=== PATIENT | female | born 1960 | race Asian ===

== ENCOUNTER 2016-12-29 07:22 | Day surgery (SDC) | payer OTHER ==
[~2016-12-29] VITALS: Ht 157.5 cm; Wt 39.9 kg
[2016-12-29 07:59] VITALS: BP 122/80
[2016-12-29 10:54] VITALS: BP 135/89
== END 2016-12-29 10:45 | disposition home or self-care (01) ==
LOC: GI 07:22
PROVIDERS: Internal Medicine Gastroenterology
PROC: 0DB68ZX Excision of Stomach, Via Natural or Artificial Opening Endoscopic, Diagnostic (ICD-10-PCS; 2016-12-29)
PROC: 0DH63UZ Insertion of Feeding Device into Stomach, Percutaneous Approach (ICD-10-PCS; principal; 2016-12-29 08:30)
DX: R13.10 Dysphagia, unspecified (principal); G20 Parkinson's disease; K29.70 Gastritis, unspecified, without bleeding; B96.81 Helicobacter pylori [H. pylori] as the cause of diseases classified elsewhere
CPT/HCPCS: 43235; J0690; J1200; J1610; J2250; J2310; J3010; J3490

== ENCOUNTER 2018-01-26 06:21 | Day surgery (SDC) | payer OTHER ==
[~2018-01-26] VITALS: Ht 154.9 cm; Wt 44.5 kg
[2018-01-26 06:49] VITALS: BP 138/91
[2018-01-26 10:58] VITALS: BP 109/77
== END 2018-01-26 10:45 | disposition home or self-care (01) ==
LOC: GI 06:21 → OR 07:30 → GI 07:30
PROVIDERS: Internal Medicine Gastroenterology
PROC: 0D20XUZ Change Feeding Device in Upper Intestinal Tract, External Approach (ICD-10-PCS; principal; 2018-01-26 07:30)
DX: K94.23 Gastrostomy malfunction (principal); R13.10 Dysphagia, unspecified; G20 Parkinson's disease; Y83.3 Surgical operation with formation of external stoma as the cause of abnormal reaction of the patient, or of later complication, without mention of misadventure at the time of the procedure; Y73.2 Prosthetic and other implants, materials and accessory gastroenterology and urology devices associated with adverse incidents; Y92.009 Unspecified place in unspecified non-institutional (private) residence as the place of occurrence of the external cause
CPT/HCPCS: 43760; J1200; J1610; J2250; J2310; J3010; J3490; Q9967

== ENCOUNTER → 2018-07-23 | Day surgery (SDC) | payer OTHER ==
[~2018-07-23] VITALS: Ht 154.9 cm; Wt 44.5 kg
[2018-07-23 07:43] VITALS: BP 138/92
== END | disposition home or self-care (01) ==
LOC: GI → OR 08:30 → GI 08:30
DX: Z43.1 Encounter for attention to gastrostomy (principal); G20 Parkinson's disease; R13.10 Dysphagia, unspecified; R62.51 Failure to thrive (child); Z93.1 Gastrostomy status; Z68.1 Body mass index [BMI] 19.9 or less, adult; Z99.3 Dependence on wheelchair
CPT/HCPCS: 43760

== ENCOUNTER 2018-09-08 21:11 | Emergency (ER) | payer OTHER ==
[~2018-09-08] VITALS: Ht 160 cm; Wt 47.6 kg
[2018-09-08 21:44] VITALS: BP 112/64; Ht 160 cm; Wt 47.6 kg
== END 2018-09-09 00:29 | disposition home or self-care (01) ==
LOC: ED 21:11
DX: Z43.1 Encounter for attention to gastrostomy (principal)
CPT/HCPCS: Q0092

== ENCOUNTER 2019-11-15 10:50 | Emergency (ER) | payer OTHER ==
[~2019-11-15] VITALS: Ht 157.5 cm; Wt 54.4 kg
[2019-11-15 11:15] VITALS: Ht 157.5 cm; Wt 54.4 kg
[2019-11-15 13:59] VITALS: BP 122/71
== END 2019-11-15 13:59 | disposition home or self-care (01) ==
LOC: ED 10:50
DX: K94.20 Gastrostomy complication, unspecified (principal)
CPT/HCPCS: Q0092; Q9967

== ENCOUNTER 2020-01-15 13:48 | Inpatient (IN) | payer OTHER, SELFPAY ==
[~2020-01-15] VITALS: Ht 152.4 cm; Wt 54.0 kg
[2020-01-15 13:52] VITALS: Ht 152.4 cm; Wt 54.0 kg
[2020-01-15 14:27] LABS: microscopic required? NO
[2020-01-15] MEDS ORDERED: LODOSYN25 MG PO (14:32)
[2020-01-15 14:39] LABS: urine erythrocyte NEGATIVE (NEGATIVE)
[2020-01-15 14:41] LABS: BASOPHIL % 0.2 % (0-2); PLATELET COUNT 177 x10^3mcL (130-400); RED CELL DISTRIBUTION WIDTH 12.7 % (11.5-14.5)
[2020-01-15 16:04] LABS: CALCIUM 7.4 mg/dL (8.5-10.1); CARBON DIOXIDE 26.5 mmol/L (21-32); CHLORIDE SERUM 101 mmol/L (98-107); CREATININE SERUM 1.2 mg/dL (0.6-1.0); GFR1 49 mL/min; GLUCOSE SERUM 186 mg/dL (74-106); POTASSIUM SERUM 3.7 mmol/L (3.5-5.1); SODIUM SERUM 135 mmol/L (136-145)
[2020-01-15 16:08] LABS: ALBUMIN 2.8 g/dL (3.4-5.0); ALKALINE PHOSPHATASE 69 U/L (46-116); ALT/SGPT 20 U/L (14-59); AST/SGOT 25 U/L (15-37); BILIRUBIN TOTAL 0.2 mg/dL (0.20-1.00); C REACTIVE PROTEIN 1.8 mg/dL (<=0.9); LACTIC DEHYDROGENASE (LDH) 177 U/L (100-190); TOTAL PROTEIN, SERUM 6.5 g/dL (6.4-8.2)
[2020-01-15 21:03] VITALS: BP 99/64
[2020-01-15 23:20] VITALS: BP 88/61
[2020-01-16] VITALS (15 sets, daily range): BP systolic 88–151; BP diastolic 61–93
[2020-01-16 05:41] LABS: PLATELET COUNT 196 x10^3mcL (130-400); RED CELL DISTRIBUTION WIDTH 11.9 % (11.5-14.5)
[2020-01-16 05:49] LABS: CALCIUM 8.4 mg/dL (8.5-10.1); CARBON DIOXIDE 30.9 mmol/L (21-32); CHLORIDE SERUM 108 mmol/L (98-107); GFR1 > 60 mL/min; GLUCOSE SERUM 179 mg/dL (74-106); POTASSIUM SERUM 4.3 mmol/L (3.5-5.1); SODIUM SERUM 141 mmol/L (136-145)
[2020-01-17 05:01] VITALS: BP 142/101
[2020-01-17 07:25] LABS: BASOPHIL % 0.3 % (0-2); PLATELET COUNT 187 x10^3mcL (130-400); RED CELL DISTRIBUTION WIDTH 12.6 % (11.5-14.5)
[2020-01-17 07:36] LABS: CALCIUM 8.2 mg/dL (8.5-10.1); CARBON DIOXIDE 32.4 mmol/L (21-32); CHLORIDE SERUM 107 mmol/L (98-107); CREATININE SERUM 0.6 mg/dL (0.6-1.0); GFR1 > 60 mL/min; GLUCOSE SERUM 93 mg/dL (74-106); POTASSIUM SERUM 3.1 mmol/L (3.5-5.1); SODIUM SERUM 143 mmol/L (136-145)
[2020-01-17 08:14] VITALS: BP 142/96
[2020-01-17 13:05] VITALS: BP 138/89
[2020-01-17] MEDS ORDERED: CARBIDOPA AND L1 TER PO (13:35)
[2020-01-17 17:26] VITALS: BP 139/97
[2020-01-17 19:51] VITALS: BP 117/73; BP 95/57
[2020-01-17 23:49] VITALS: BP 118/75
[2020-01-18 05:00] VITALS: BP 145/85
[2020-01-18 07:15] LABS: BASOPHIL % 0.3 % (0-2); PLATELET COUNT 179 x10^3mcL (130-400); RED CELL DISTRIBUTION WIDTH 12.6 % (11.5-14.5)
[2020-01-18 07:33] LABS: CALCIUM 8.1 mg/dL (8.5-10.1); CARBON DIOXIDE 29.6 mmol/L (21-32); CHLORIDE SERUM 103 mmol/L (98-107); CREATININE SERUM 0.8 mg/dL (0.6-1.0); GFR1 > 60 mL/min; GLUCOSE SERUM 106 mg/dL (74-106); POTASSIUM SERUM 3.2 mmol/L (3.5-5.1); SODIUM SERUM 140 mmol/L (136-145)
[2020-01-18 08:14] VITALS: BP 129/83
[2020-01-18 12:54] VITALS: BP 119/74
[2020-01-18 16:36] VITALS: BP 148/96
[2020-01-18 21:32] VITALS: BP 152/83
[2020-01-19 06:35] VITALS: BP 133/85
[2020-01-19 06:57] LABS: BASOPHIL % 0.2 % (0-2); PLATELET COUNT 172 x10^3mcL (130-400); RED CELL DISTRIBUTION WIDTH 12.3 % (11.5-14.5)
[2020-01-19 07:10] LABS: CALCIUM 8.2 mg/dL (8.5-10.1); CARBON DIOXIDE 33.2 mmol/L (21-32); CHLORIDE SERUM 102 mmol/L (98-107); CREATININE SERUM 0.7 mg/dL (0.6-1.0); GFR1 > 60 mL/min; GLUCOSE SERUM 127 mg/dL (74-106); POTASSIUM SERUM 3.5 mmol/L (3.5-5.1); SODIUM SERUM 138 mmol/L (136-145)
[2020-01-19 09:33] VITALS: BP 118/80
[2020-01-19 12:29] VITALS: BP 132/90
[2020-01-19 16:08] VITALS: BP 162/102
[2020-01-19 16:22] VITALS: BP 132/76
[2020-01-19 20:55] VITALS: BP 139/96
[2020-01-20 05:50] VITALS: BP 141/89
[2020-01-20 07:24] LABS: CARBON DIOXIDE 26.2 mmol/L (21-32); CHLORIDE SERUM 102 mmol/L (98-107); CREATININE SERUM 0.6 mg/dL (0.6-1.0); GFR1 > 60 mL/min; GLUCOSE SERUM 136 mg/dL (74-106); POTASSIUM SERUM 3.7 mmol/L (3.5-5.1); SODIUM SERUM 135 mmol/L (136-145)
[2020-01-20 08:28] VITALS: BP 130/86
[2020-01-20 08:59] LABS: BASOPHIL % 0.3 % (0-2); PLATELET COUNT 185 x10^3mcL (130-400); RED CELL DISTRIBUTION WIDTH 12.7 % (11.5-14.5)
[2020-01-20 10:13] VITALS: BP 130/86
[2020-01-20 12:09] VITALS: BP 127/92
== END 2020-01-20 12:35 | disposition home or self-care (01) | DRG 720 ==
LOC: ED 13:48 → DU 17:24 → IC 18:48 → DU 19:05 → IC 20:10 → DU 20:38 → IC 20:44 → DU 01-16 21:41
PROVIDERS: Emergency Medicine; ADMIT Internal Medicine; ATTEND Internal Medicine
DX: A41.9 Sepsis, unspecified organism (principal); U07.1 COVID-19; J96.01 Acute respiratory failure with hypoxia; J69.0 Pneumonitis due to inhalation of food and vomit; G93.41 Metabolic encephalopathy; E44.0 Moderate protein-calorie malnutrition; R13.10 Dysphagia, unspecified; E87.1 Hypo-osmolality and hyponatremia; N17.9 Acute kidney failure, unspecified; G20 Parkinson's disease; E16.2 Hypoglycemia, unspecified; J45.909 Unspecified asthma, uncomplicated; J12.89 Other viral pneumonia; F02.80 Dementia in other diseases classified elsewhere, unspecified severity, without behavioral disturbance, psychotic disturbance, mood disturbance, and anxiety; E86.0 Dehydration; Z93.1 Gastrostomy status; Z68.1 Body mass index [BMI] 19.9 or less, adult; Z79.899 Other long term (current) drug therapy
CPT/HCPCS: 36600; 83880; 87804; G0378; J0456; J0696; J1100; J3535; J7042; J7050; J7060; Q0092; U0003-CS

== ENCOUNTER 2020-01-23 15:45 | Inpatient (IN) | payer OTHER, SELFPAY ==
[~2020-01-23] VITALS: Ht 160 cm; Wt 49.9 kg
[~2020-01-23 15:45] MED LIST: CARBIDOPA AND L1 TER PO; LODOSYN25 MG PO
[2020-01-23 15:46] VITALS: Ht 160 cm; Wt 49.9 kg
--- NOTE | 2020-01-23 16:15 | NUR ---
PT BIB DAUGHTER S/P COVID SYMPTOMS X8DAYS. PT AAOX0 AND NONVERBAL. DTR AT BEDSIDE. PER DTR, "MY MOM WAS DISCHARGED HERE ON THURSDAY FOR COVID. SHE WAS IN THE ICU AND TELE HERE. SHE LIVES WITH MY BROTHERS AND THEY TOLD ME SHE HASN'T BEEN WELL SINCE SHE GOT HOME. SHE HAS BEEN BREATHING FAST AND HAD A FEVER. HER BLOOD PRESSURE WAS ALSO LOW TODAY." DTR STS PT HAS HX OF PARKINSONS. PT PRESENTS TO THE ER AAOX0, RAPID AND SHALLOW RESPIRATIONS, WITH A G/T AND A DIAPER. PT SAT ON RA 94-95% AND PRESENTS WITH A FEVER. PER DTR, TYLENOL WAS GIVEN FOR THE FEVER AT 1430. AWAITING MD ORDERS
--- NOTE | 2020-01-23 16:30 | NUR ---
PT OPENING EYES, DISPLAYING GROANING NOISES. PT UNABLE TO FOLLOW COMMANDS. DTR AT BEDSIDE. CONTINUING TO MONITOR.
--- NOTE | 2020-01-23 16:37 | NUR ---
RT AT BEDSIDE FOR ABG
--- NOTE | 2020-01-23 16:40 | NUR ---
RT RECOMMEND PT TO BE MOVED TO A NEGATIVE PRESSURE ROOM DUE TO PT UNABLE TO FOLLOW DIRECTIONS OF ALBUTEROL TX. WILL INFORM MD AND LACE STRIPPER.
--- NOTE | 2020-01-23 16:45 | NUR ---
PT MOVED TO BED T1 FROM BED 11 VIA [facility].
[2020-01-23 16:57] LABS: CALCIUM 7.9 mg/dL (8.5-10.1); CARBON DIOXIDE 29.3 mmol/L (21-32); CHLORIDE SERUM 101 mmol/L (98-107); CREATININE SERUM 0.9 mg/dL (0.6-1.0); GFR1 > 60 mL/min; GLUCOSE SERUM 155 mg/dL (74-106); PLATELET COUNT 245 x10^3mcL (130-400); POTASSIUM SERUM 4.1 mmol/L (3.5-5.1); RED CELL DISTRIBUTION WIDTH 12.6 % (11.5-14.5); SODIUM SERUM 135 mmol/L (136-145)
[2020-01-23 16:58] LABS: BASOPHIL % 0 % (0-2)
[2020-01-23 17:02] LABS: ALKALINE PHOSPHATASE 174 U/L (46-116); ALT/SGPT 75 U/L (14-59); AST/SGOT 84 U/L (15-37); BILIRUBIN TOTAL 0.18 mg/dL (0.20-1.00); LACTIC DEHYDROGENASE (LDH) 317 U/L (100-190); TOTAL PROTEIN, SERUM 6.7 g/dL (6.4-8.2)
[2020-01-23 17:03] LABS: ALBUMIN 2.4 g/dL (3.4-5.0)
[2020-01-23 17:27] LABS: microscopic required? YES; urine erythrocyte TRACE (NEGATIVE)
--- NOTE | 2020-01-23 17:33 | NUR ---
MAGALY, ANA: [phone] [facility], 1928–1983: [phone]
[2020-01-23 18:00] VITALS: BP 130/79
--- NOTE | 2020-01-23 18:10 | NUR ---
REPORTED GIVEN TO STACEY JAIN
--- NOTE | 2020-01-23 18:25 | NUR ---
RECEIVED PT VIA [employer] FROM E/D, ACCOMPANIED BY RN AND TRANSPORTER. PT AWAKE, CONFUSED, DISORIENTED, TRACKS W/ EYES, APHASIC, UNABLE TO FOLLOW SIMPLE COMMANDS (@ BASELINE, PT ABLE TO FOLLOW COMMANDS); INTERVIEWED DAUGHTER INSTEAD, JUSTIN BLANTON, VIA TELEPHONE CALL @ [phone]. ON TELE # 3, ST, HR 100, NO S/S CHEST PAIN OR DISCOMFORT. MICHAEL LUNGS DIM, CHEST RISING EVENLY, 2LNC, 97%, EPISODES OF SOB. ABD SOFT, ROUND, NON-TENDER, NORMOACTIVE BOWEL SOUNDS X 4 QUADS, LAST BM 01/23/2020, PASTY; PT W/ GT 20FR/5CC BALLOON, UNKNOWN INSTALLATION DATE, GT SITE CDI; PER DAUGHTER, PT ON "PUREED" DIET @ HOME VIA GT + ENSURE. ON F/C 16FR, INSTALLED 01/23/2020, DRAINING CLEAR YELLOW URINE; UA +MANY BUDDING YEAST. PT W/ GENERALIZED WEAKNESS, USES W/C @ HOME, BEDBOUND @ THIS TIME, RECENT FALL, FALL RISK PROTOCOL IN PLACE. IV SITE RH 22G, CDI. UNABLE TO ORIENT PT TO ANYTHING @ THIS TIME. SIDE RAILS UP X 2, BED IN LOW POSITION, CALL LIGHT WITHIN REACH. WILL ENDORSE TO SUSY IBARRA.
--- NOTE | 2020-01-23 18:35 | NUR ---
Pt FROM ER LYING IN BED NON VERBAL ON TELE 3 MRSA SWABBED AND SENT TO LAB. IV ON RIGHT HAND PATENT AND INTACT. BEDFAST Pt ASSISTED WITH REPOSITION. A&O. ON 2L NC LUNGS DIMINSHED BILAT EXPIRATORY WHEEZES RR 22. CHEST RISE EQUAL. HENSON DRAINING TO GRAVITY. PEG TUBE IN PLACE C/D/I NPO AT THIS TIME. ALL SAFETY PRECAUTIONS IN PLACE. ALL NEEDS ATTENDED TO. WILL CONTINUE TO MONITOR.
[2020-01-23 19:04] VITALS: BP 151/80
--- NOTE | 2020-01-23 19:07 | NUR ---
Pt LYING IN BED DECADRON GIVEN Pt TOLERATED WELL. NO S/S OF ANY ACUTE DISTRESS. ALL NEEDS ATTENDED TO,=. WILL ENDORSE CARE TO NIGHT RN
--- NOTE | 2020-01-23 20:00 | NUR ---
CALLED DR DAVILA REGARDING DIET AND CONTINUING HOME MEDICATION. STATED IT WAS OKAY TO ORDER DIET CONSULT AND CONTINUE HOME MEDICATION. ACCORDING TO PTS FAMILY, PATIENT IS GIVEN PURREED FOOD AND ENSURE AT HOME VIA G TUBE. THERE IS NO SPECIFIED FORMULA.
--- NOTE | 2020-01-23 20:00 | NUR ---
PT IS IN BED LAYING SUPINE AT 45 DEGREES. PATIENT TRACKS WITH EYES. SHE DOES NOT RESPOND TO COMMANDS. ON TELEMONITOR 3. NSR. RADIAL PULSE 2+. PEDAL PULSE 2+. NO EDEMA NOTED. ON 2 L NC. LUNG SOUNDS DIMINISHED BILATERAL LOBES. NO S/S OF RESP DISTRESS. SATURATION 97%. NORMOACTIVE BOWEL SOUNDS X4. LAST BM 01/23/20. PASTY AND BROWN. HENSON CATHETER IN PLACE DRAINING CLOUDY YELLOW URINE WITH FEW SEDIMENT. GENERALIZED WEAKNESS. WILL NEED ASSISTANCE IN TURNING Q2HRS. WHEELCHAIR AT BASELINE. NO S/S OF DISTRESS OR PAIN NOTED. NO FACIAL GRIMACING. RH 22G. CDI. DENIES PAIN AT SITE. BED IN LOWEST AND LOCKED POSITION. CALL LIGHT WITHIN REACH. WILL CONT TO MONITOR.
--- NOTE | 2020-01-23 20:10 | NUR ---
PTS SATURATION AT 95%. HR 85 BPM. NO S/S OF RESP DISTRESS. BREATHING E/U. WILL CONT TO MONITOR.
--- NOTE | 2020-01-23 21:00 | NUR ---
CALLED PATIENTS DAUGHTER AND SON REGARDING HOME MEDICATION. PATIENT RECIEVED CARBIDOPA/LEVIDOPA VIA G-TUBE. SHE DOES NOT TAKE ANYTHING BY MOUTH. HOME MED DOSE STATED: CARBIDOPA/LEVODOPA 25-250 MG TID
[2020-01-23 21:12] VITALS: BP 142/84
--- NOTE | 2020-01-23 23:30 | NUR ---
DR CALL CALLED VIA TELEPHONE FOR PHONE ORDERS REGARDING THE PATIENT. DR ORDERED DECADRON, VANCOMYCIN, REMDESIVIR, LOVENOX, CONVALASCENT PLASMA, AND ZOSYN. WILL INPUT ORDERS PRESCRIBED. DR CALL ALSO D/C ORDER FOR AZITHROMYCIN.
[2020-01-24] VITALS: BP 111/72
--- NOTE | 2020-01-24 | NUR ---
PTS SATURATION AT 97%. HR 89 BPM. BP 111/72 MMHG. BREATHING E/U. NO S/S OF RESP DISTRESS. WILL CONT TO MONITOR.
--- NOTE | 2020-01-24 03:04 | NUR ---
PT SATURATION AT 97%. HR 86 BPM. BREATHING E/U. NO S/S OF RESP DISTRESS. PT OPENED HER EYES AT THIS TIME AND TRACKED WITH EYES. ALSO NODDED HEAD WHEN I TOLD HER ABOUT HER DAUGHTER.
[2020-01-24 06:07] VITALS: BP 145/93
--- NOTE | 2020-01-24 06:45 | NUR ---
SPOKE WITH DR DAVILA VIA TELEPHONE. HE STATED IT WAS OKAY TO GIVE MEDS VIA G TUBE.
--- NOTE | 2020-01-24 06:50 | NUR ---
DAUGHTER, ANA GAVE CONSENT TO GIVE 1 UNIT OF CONVALESCENT PLASMA. SUSY GROSSMAN WITNESSED CONSENT VIA TELEPHONE.
--- NOTE | 2020-01-24 07:10 | NUR ---
RECIEVED PT AWAKE IN BED WITH NO S/S OF ANY PAIN OR DISTRESS. PT DOES NOT RESPOND VERBALLY BUT TRACKS WITH EYES. TELE #3 CONNECTED TO PT WITH NO S/S OF ANY CP OR PRESSURE. PT FOUND ON 2LPM O2 NC, NO SOB NOTED. GT TO RUQ CDI. OK TO USE FOR MEDS PER DR DAVILA. HENSON CATHETER IN PLACE AND DRAINING YELLOW URINE WITH SOME SEDIMENT NOTED. SKIN CDI. REPOSITIONED Q2H AND PRN. RIGHT HAND IV CDI AND PATENT. SAFETY PRECAUTIONS IN PLACE, CALL LIGHT IWLATOYA RAM, WILL MONITOR.
[2020-01-24 07:26] LABS: BASOPHIL % 0.2 % (0-2); PLATELET COUNT 288 x10^3mcL (130-400); RED CELL DISTRIBUTION WIDTH 12.6 % (11.5-14.5)
--- NOTE | 2020-01-24 07:30 | NUR ---
INPUTED ORDERS FOR TYPE AND SCREEN AND 1 UNIT OF CONVALESCENT PLASMA. ORDERS GIVEN BY DR CALL. PATIENT STILL NEEDS TO BE REGISTERED ON PATIENT ENROLLMENT.
--- NOTE | 2020-01-24 07:37 | NUR ---
PT IS STABLE AT THIS TIME. ENDORSED CARE TO AM NURSE.
[2020-01-24 07:46] LABS: CALCIUM 8.5 mg/dL (8.5-10.1); CARBON DIOXIDE 29.6 mmol/L (21-32); CHLORIDE SERUM 105 mmol/L (98-107); CREATININE SERUM 0.7 mg/dL (0.6-1.0); GFR1 > 60 mL/min; GLUCOSE SERUM 171 mg/dL (74-106); POTASSIUM SERUM 4.5 mmol/L (3.5-5.1); SODIUM SERUM 141 mmol/L (136-145)
--- NOTE | 2020-01-24 08:16 | NUR ---
Nutrition consult received for tube feeding. BMI: 19.5 (underweight for age) Wt: 49.895kg/109.8lbs Ht: 160.02cm/63in Estimated nutritional needs based on current body weight (50kg) Energy: 5303-9519 kcal/day (30-35 kcal/kg for underweight for age, viral infection) Protein: 60-75 g/day (1.2-1.5 g/kg for underweight for age, viral infection) Fluid: 9207-4510 ml/day (1 ml/kcal) or per MD Recommendations: 1. Recommend Jevity 1.2 at 55ml/hr. Regimen at goal rate will provide a volume of 1320ml, 1584kcal, 73.26g protein, and 1065ml free water meeting 100% of estimated kcal and protein needs. 2. Recommend fluid flush 70ml Q4H to provide additional 420ml fluid. Total free fluid with tube feed: 1485ml. Pt was screened and categorized as high nutritional risk. Initial assessment due
[2020-01-24 09:35] VITALS: BP 131/89
[2020-01-24 10:16] LABS: BILIRUBIN DIRECT 0.11 mg/dL (0.0-0.2); BILIRUBIN TOTAL 0.25 mg/dL (0.20-1.00); TOTAL PROTEIN, SERUM 7.1 g/dL (6.4-8.2)
[2020-01-24 10:18] LABS: ALBUMIN 2.4 g/dL (3.4-5.0)
--- NOTE | 2020-01-24 13:13 | NUR ---
RECIEVED VERBAL FEEDING ORDER FROM DR DAVILA FOR JEVITY 1.2 @ 55ML/HR WITH FREE H2O AT 70ML/Q4H. RBVO, ORDER NOTED AND CARRIED OUT.
[2020-01-24 13:38] VITALS: BP 153/95
[2020-01-24 16:48] VITALS: BP 152/94
--- NOTE | 2020-01-24 18:00 | NUR ---
1800:PLASMA WITNESSED AND CHECKED WITH SUSY WILSON. TRANSFUSION STARTED. 1814: NO ADVERSE REACTIONS NOTED, VS WNL.
--- NOTE | 2020-01-24 18:58 | NUR ---
PT AWAKE IN BED WITH NO S/S OF ANY PAIN OR DISTRESS. PT DOES NOT RESPOND VERBALLY BUT TRACKS WITH EYES. TELE #3 CONNECTED TO PT WITH NO S/S OF ANY CP OR PRESSURE. PT ON 2LPM O2 NC, NO SOB NOTED. GT TO RUQ CDI. JEVITY 1.2 RUNNING AT 55ML/HR. PT TOLERATING WELL. HENSON CATHETER IN PLACE AND DRAINING CLEAR YELLOW URINE . SKIN CDI. REPOSITIONED Q2H AND PRN. RIGHT HAND IV CDI AND PATENT. CONVALESCANT PLASMA RUNNING IN IV AT THIS TIME, STARTED AT 1800, NO ADVERSE REACTIONS NOTED. VS WNL. SAFETY PRECAUTIONS IN PLACE, CALL LIGHT IWTHIN REACH, WILL ENDORSE CARE TO HEALTH ADVOCATE.
[2020-01-24 19:45] VITALS: BP 153/92
--- NOTE | 2020-01-24 20:00 | NUR ---
TRANSFUSION OF 1 UNIT CONVALESCENT PLASMA IS DONE. PT TOLERATED WELL, NO ADVERSE REACTION NOTED. ALL VS WDL, NO DISTRESS AT 2LPM OXYGEN VIA NC, WITH SPO2 >93%. PT IS AWAKE/ALERT, WITH INCOMPREHENSIBLE SOUNDS AND DOES NOT FOLLOW COMMAND. GTUBE FEEDING RUNNING Get[employer] 1.2 ORDERED. FALL PRECAUTION IN PLACE, BED AT LOWEST POSITION. WILL CONTINUE TO MONITOR.
[2020-01-25 05:27] VITALS: BP 158/100
[2020-01-25 06:35] LABS: BASOPHIL % 0.1 % (0-2); PLATELET COUNT 397 x10^3mcL (130-400); RED CELL DISTRIBUTION WIDTH 12.7 % (11.5-14.5)
[2020-01-25 06:47] LABS: CALCIUM 8.8 mg/dL (8.5-10.1); CARBON DIOXIDE 25.9 mmol/L (21-32); CHLORIDE SERUM 99 mmol/L (98-107); GFR1 > 60 mL/min; GLUCOSE SERUM 185 mg/dL (74-106); POTASSIUM SERUM 4.2 mmol/L (3.5-5.1); SODIUM SERUM 138 mmol/L (136-145)
--- NOTE | 2020-01-25 06:47 | NUR ---
PT IS SLEEPING BUT EASILY AROUSABLE, NO DISTRESS NOTED AT 2LPM OXYGEN VIA NC, ALL VS WDL. NSR ON TELE. PT IS ALERT BUT NONVERBAL, RESPONDS BY NODDING AT TIMES. GTUBE FEEDING OF JEVITY 1.2 IS RUNNING AT 55ML/HR TOLERATING WELL, RESIDUAL CHECK DONE Q4H WHICH IS BELOW 30ML EACH TIME. IV IS INTACT. HENSON IN PLACE DRAINING CLEAR YELLOW URINE. INCONTINENCE CHECK DONE Q2H TO KEEP PT CLEAN AND DRY. NO SKIN BREAKDOWN NOTED. FALL PRECAUTION KEPT IN PLACE AT ALL TIMES, BED ON LOWEST POSITION. NO ACUTE EVENT THROUGHOUT THE SHIFT. ALL NEEDS WERE MET, WILL ENDORSE CARE TO DAYSHIFT RN.
[2020-01-25 07:34] LABS: BILIRUBIN DIRECT 0.11 mg/dL (0.0-0.2); BILIRUBIN TOTAL 0.3 mg/dL (0.20-1.00); TOTAL PROTEIN, SERUM 7.7 g/dL (6.4-8.2)
--- NOTE | 2020-01-25 07:34 | NUR ---
PT ENDORSE TO ME THIS MORNING, LAYING IN BED RESTING NON/VERBAL/ CONFUSE/ UNABLE TO FOLLOW SIMPLE COMMANDS. BREATHING EVEN AND UNLABORED ON 2L NC SATING AT 99% NO ACUTE RESP DISTRESS NOTED. TELE 3 NSR NOTED HR 81 / NO SIGN OF CP OR PRESSURE NOTED. BEDBOUND IS ABLE TO TO ASSIST IN REPOSITIONING, GEN WEAKNESS. HENSON INTACT AND PATENT/ DRAINING CLEAR YELLOW URINE. IV TO THE R HAND INTACT AND PATENT/ NO REDNESS OR SWELLING NOTED. CALL LIGHT IN REACH. BED ALARM ON. WILL CONTINUE TO MONITOR.
[2020-01-25 07:37] LABS: ALBUMIN 2.6 g/dL (3.4-5.0)
[2020-01-25 08:46] VITALS: BP 126/90
--- NOTE | 2020-01-25 11:57 | NUR ---
UPDATE WAS GIVEN PT DAUGHTER ANA AND WAS ABLE TO FACETIME WITH Moi HARVINDER. WILL CONTINUE TO MONITOR.
[2020-01-25 13:20] VITALS: BP 128/90
--- NOTE | 2020-01-25 13:43 | NUR ---
Initial Nutrition Assessment: 222B NEGIN BLANTON THI 60F HR Nursing trigger: appears underweight/malnourished, Poor PO > 3 days, unable to ingest diet for age Dx: PNA, COVID positive PMHx: Bronchitis, PNA, Parkinson's PSHx: none noted Labs: (01/24) BG 185H, AST 129H, ALT 91H, Alk ph 162H, albumin 2.6L, (01/22) Ferritin 585.5H, CRP 10H Meds: Zosyn, Pepcid, Lovenox, Decadron, Sinemet, Vancocin TF: Jevity at 55ml/hr fwf 70ml Q4H via GT TF infusion: (01/24) 775ml Ht: 160.02cm/63in Wt: 49.895kg/109.8lbs BMI: 19.5 Bed scale: not accessible IBW: 52.27kg/115lbs %IBW: 95.5% UBW: unknown Age: 60 Food Allergies: unknown Edema: none noted Last BM: 01/22 Skin: no open wound noted; intact Ab: 11 I&O: (01/24)1385/2600ml = -1215ml, (01/23) 300ml/1000ml = -1000ml Per H and P (01/22) pt is a 60 yo female h/o Parkinson's, who was recently hospitalized for cov 19 pneumonia, was doing better and on RA, was sent home on po antibiotics. She was doing well until yesterday when she started to have more symptoms with sob, started spiking fever today. She was dyspneic, and was taken to the ed for an evaluation. She was again hypoxic. She was admitted to [facility] for further treatments. Pt was admitted with dx: Hypoxia, PNA, respiratory failure, Parkinson's, COVID 19 RD Note (01/24) Pt was in isolation, and assessment was done relied on pt's medical records and RN. Per RN, pt's tube feeding was infusing at goal rate 55ml/hr, and pt was tolerating tube feed with no residuals today. Additionally, pt did not exhibit any signs of GI distress, but pt's last BM was 01/22. RN stated that she would keep monitoring. Problem with: N/V/D/C: possible constipation Problems with: Chewing: Swallowing: n/a, pt on tube feeding Current appetite: n/a, pt on tube feeding Recent wt change: unknown %wt change: unknown Height: not accessible Vitamin/Supplement use: unknown Special diet at home: Puree food and ensure via G-tube Physical activity: unknown Nutrition education given (specify specific nutrition education and handout given): n/a Food-drug interactions? Education given? n/a Estimated nutritional needs based on current body weight (50kg) Energy: 9562-8797 kcal/day (30-35 kcal/kg for underweight for age, viral infection) Protein: 60-75 g/day (1.2-1.5 g/kg for underweight for age, viral infection) Fluid: 8050-4763 ml/day (1 ml/kcal) or per MD Nutrition Diagnosis: 1. Altered GI function r/t pathophysiological cause a/e/b pt dependence on enteral feeding for nutrition. Intervention 1. Continue Jevity 1.2 at 55ml/hr. Regimen at goal rate will provide a volume of 1320ml, 1584kcal, 73.26g protein, and 1065ml free water meeting 100% of estimated kcal and protein needs 2. Continue fluid flush 70ml Q4H to provide additional 420ml fluid. Total free fluid with tube feed: 1485ml. Monitor/Evaluate Goal: Pt meeting at least 75% of estimated needs via nutrition support (met, ongoing goal) Monitor: Nutrition support tolerance, Labs, GI function, Body weight F/U in 2-3 days as high risk 01/26-
[2020-01-25 16:04] VITALS: BP 120/76
--- NOTE | 2020-01-25 18:21 | NUR ---
PT REMAINS ON JEVITY 1.2 TF AT GOAL/ 55ML/HR TOLERATING WELL/ FWF AT 70 Q 4 HOURS. NO ACUTE CHANGES AT THIS TIME, NO ACUTE RESP DISTRESS OR SOB NOTED SATING AT 99% ON 2L NC. NO SIGN OF PAIN OR DISCOMFORT. WILL ENDORSE TO INCOMING RN.
[2020-01-25 19:43] VITALS: BP 119/78
[2020-01-26 06:02] VITALS: BP 138/91
[2020-01-26 07:08] LABS: BASOPHIL % 0.3 % (0-2); RED CELL DISTRIBUTION WIDTH 12.5 % (11.5-14.5)
[2020-01-26 07:16] LABS: CALCIUM 8.5 mg/dL (8.5-10.1); CARBON DIOXIDE 29.7 mmol/L (21-32); CHLORIDE SERUM 100 mmol/L (98-107); CREATININE SERUM 0.8 mg/dL (0.6-1.0); GFR1 > 60 mL/min; GLUCOSE SERUM 206 mg/dL (74-106); PLATELET COUNT 422 x10^3mcL (130-400); SODIUM SERUM 137 mmol/L (136-145)
--- NOTE | 2020-01-26 07:28 | NUR ---
PT ENDORSE TO ME THIS MORNING, LAYING IN BED RESTING / NON-VERBAL UNABLE TO FOLLOW SIMPLE COMMANDS/ OPEN EYES TO NAME. BREATHING EVEN AND UNLABORED ON 2L NC SATING AT 99 % NO ACUTE RESP DISTRESS OR SOB NOTED. TELE 3 SR HR 83 NO SIGN OF CP OR PRESSURE. REMAINS ON TF AT 55 ML/HR AT GOAL AND FWF AT 70 ML/HR Q 4 HOURS/ TOLERATING WELL. HENSON INTACT AND PATENT DRAINING TO GRAVITY CLEAR YELLOW URINE NOTED. BEDBOUND IS ABLE TO ASSIST WITH REPOSITIONING AT TIMES. IV TO THE R HAND INTACT AND PATENT/ HEPLOCKED. CALL LIGHT IN REACH .BED IN LOW POSITION. WILL CONTINUE TO MONITOR.
[2020-01-26 07:42] VITALS: BP 126/88
[2020-01-26 08:09] LABS: BILIRUBIN DIRECT 0.11 mg/dL (0.0-0.2); BILIRUBIN TOTAL 0.3 mg/dL (0.20-1.00); TOTAL PROTEIN, SERUM 6.9 g/dL (6.4-8.2)
[2020-01-26 08:11] LABS: ALBUMIN 2.4 g/dL (3.4-5.0)
--- NOTE | 2020-01-26 08:54 | NUR ---
PT. ADMITTED WITH LOW JELLY SCALE AT RISK, CONTINUE TO FOLLOW PRESSURE ULCER PREVENTION INTERVENTIONS. -TURN AND REPOSITION PATIENT Q 2H -ASSESS AND MONITOR SKIN CONDITION DURING POSITION CHANGE -OFFLOAD BILATERAL HEELS BY PLACING PILLOWS UNDER CALVES AT ALL TIMES, UNLESS OTHERWISE CONTRAINDICATED -PRESSURE REDISTRIBUTION BY PLACING PILLOWS AND OFFLOADING SACRALCOCCYX -KEEP SKIN CLEAN AND DRY AT ALL TIMES.
--- NOTE | 2020-01-26 09:00 | NUR ---
LATE ENTRY: CHANGED TUBE FEEDING BAG AND TUBING, CURRENTLY INFUSING AT 55ML/HR/ FWF AT 70ML/HR Q 4 HOURS. WILL CONTINUE TO MONITOR.
[2020-01-26 11:30] VITALS: BP 135/93
--- NOTE | 2020-01-26 12:20 | NUR ---
PLACED PT ON AIR MATTRESS, APPLIED BILAT HEEL PROTECTORS TO R AND L FEET/ BOTH ELEVATED ON X1 PILLOW, REDISTRIBUTE PRESSURE WITH PILLOW TO THE L SIDE. BED ALARM ON/ WILL CONTINUE TO MONITOR.
--- NOTE | 2020-01-26 12:24 | NUR ---
KAN CARE AND HENSON CARE COMPLETE.
[2020-01-26 17:00] VITALS: BP 120/85
--- NOTE | 2020-01-26 17:09 | NUR ---
FACE TIMED WITH ANA AND LIBIA/ UPDATE WAS GIVEN.
--- NOTE | 2020-01-26 18:06 | NUR ---
NO ACUTE CHANGES AT THIS TIME, NO ACUTE RESP DISTRESS OR SOB NOTED / CURRENTLY ON 1L NC SAT AT 98 % . TELE 11 NSR HR 86 NO SIGN OF CP OR DISCOMFORT. CALL LIGHT IN REACH. BED IN LOW POSITION. WILL ENDORSE TO INCOMING RN.
--- NOTE | 2020-01-26 20:00 | NUR ---
RECEIVED PATIENT AWAKE AND ABLE TO TRACK WITH EYES. NODS HEAD YES OR SHAKES HEAD NO WHEN ASKING QUESTIONS. NON VERBAL. WILL TURN Q2. JEVITY INFUSING IN GTUBE. SITE CLEAN DRY AND INTACT. NO RESPIRATORY DISTRESS NOTED.
[2020-01-26 21:21] VITALS: BP 129/81
--- NOTE | 2020-01-27 04:00 | NUR ---
CHANGED TUBING AND JEVITY FEEDING, LAST FEEDING FINISHED. FLUSHED Q4 HOURS PER ORDERS. LESS THAN 5 MLS RESIDUAL NOTED.
[2020-01-27 06:18] VITALS: BP 145/93
--- NOTE | 2020-01-27 06:47 | NUR ---
ADMINISTERED MORPHINE X2 DURING SHIFT DUE TO PATIENT NODDING YES WHEN ASKED IF IN PAIN. FACIAL GRIMACING WELL. RESTED COMFORTABLY THROUGH OUT NIGHT. TURNED Q2 ON AIR MATTRESS. NO DISTRESS NOTED.
[2020-01-27 07:23] LABS: CALCIUM 8.6 mg/dL (8.5-10.1); CARBON DIOXIDE 30.3 mmol/L (21-32); CHLORIDE SERUM 99 mmol/L (98-107); CREATININE SERUM 0.9 mg/dL (0.6-1.0); GFR1 > 60 mL/min; GLUCOSE SERUM 246 mg/dL (74-106); POTASSIUM SERUM 4.2 mmol/L (3.5-5.1); SODIUM SERUM 136 mmol/L (136-145)
[2020-01-27 07:30] LABS: BASOPHIL % 0.3 % (0-2); RED CELL DISTRIBUTION WIDTH 12.4 % (11.5-14.5)
--- NOTE | 2020-01-27 08:00 | NUR ---
RECIEVED REPORT FROM [facility] NURSE. PATIENT IS CURRENTLY ON ISOLATION PRECAUTIONS DUE TO POSITIVE COVID 19 STATUS. PATIENT IS ON 1.5 LITER NASAL CANNULA, LUNG SOUNDS DIMISHED BILATERALY. PATIENT IS CURRENTLY SATURATING AT 95% ON 1.5 LITER NASAL CANNULA. PATIENT HAS A GTUBE IN PLACE INFUSING CONTINOUS FEEDING (JEVITY) AT 55/HOUR. HENSON IN PLACE CURRENTLY DRAINING YELLOW URINE TO GRAVITY. IV TO THE RIGHT HAND PATENT AND INTACT AND CURRENTLY SALINE LOCKED. PATIENT IS ON AN AIR MATRESS. BED IN THE LOW POSITION. CALL LIGHT WITHIN REACH. WILL CONTINUE TO PROVIDE CARE FOR PATIENT.
[2020-01-27 08:12] LABS: PLATELET COUNT 475 x10^3mcL (130-400)
[2020-01-27 08:19] LABS: BILIRUBIN DIRECT 0.11 mg/dL (0.0-0.2); BILIRUBIN TOTAL 0.3 mg/dL (0.20-1.00); TOTAL PROTEIN, SERUM 7.4 g/dL (6.4-8.2)
[2020-01-27 08:26] LABS: ALBUMIN 2.5 g/dL (3.4-5.0)
[2020-01-27 08:52] VITALS: BP 145/90
--- NOTE | 2020-01-27 11:44 | NUR ---
PATIENT APPEARS FLUSHED IN THE FACE. VITAL SIGNS CHECKED AND STABLE. PATIENT CURRENTLY AFEBRILE. WILL CONTINUE TO MONITOR.
[2020-01-27 13:13] VITALS: BP 143/96
[2020-01-27 18:13] VITALS: BP 135/92
--- NOTE | 2020-01-27 18:45 | NUR ---
PATIENT CURRENTLY OBSERVED RESTING IN BED. RESPIRATIONS EQUAL AND UNLABORED WITH SYMMETRICAL CHEST RISE AND FALL. PATIENT REMAINS ON ISOLATION PRECAUTIONS DUE TO POSITIVE COVID-19 STATUS. PATIENT IS CURRENTLY ON ROOM AIR AND IS SATURATING AT 98% ON ROOM AIR- PATIENT HAS BEEN TITRATED DOWN FROM 1.5 LITER NASAL CANNULA TO ROOM AIR TODAY. PATIENT IS TOLERATING ROOM AIR. PATIENT REMAINS ON REMDESIVIR AND ZOSYN- IV TO THE RIGHT HAND. HENSON IN PLACE DRAINING YELLOW URINE TO GRAVITY. NO SIGNS OR SYMPTOMS OF DISCOMFORT. SAFETY PRECAUTIONS IN PLACE. CALL LIGHT WITHIN REACH. WILL ENDORSE ALL FURTHER CARE TO THE NOC NURSE.
--- NOTE | 2020-01-27 19:30 | NUR ---
PT RECIEVED FROM DAY NURSE. PT RESTING IN BED AT THIS TIME. PT AWAKE, ALERT, ABLE TO TRACK. NONVERBAL. NO S/S OF ACUTE DISTRESS NOTED AT THIS TIME. TELE 3, NSR. NO S/S OF CP, NV, DIZZINESS, OR PALPATATIONS NOTED. PALPABLE PULSES, NO EDEMA NOTED AT THIS TIME. BREATHING E/U ON RA. ABD SOFT AND FLAT, GTUBE FEED IN PLACE. PT TOLERATING WELL AT THIS TIME. GEN WEAKNESS, PT BEDBOUND, TURNING AND REPOSITIONING Q2. IV TO RH, CDI. BED AT LOWEST POSITION, CALL LIGHT WITHIN REACH. WILL CONTINUE TO MONITOR.
--- NOTE | 2020-01-27 20:00 | NUR ---
RESIDUAL CHECKED AT THIS TIME. 0 ML RESIDUAL MOTED. PT FAMILY FACETIMED AT THIS TIME. PT IN A POSITION OF COMFORT. WILL CONTINUE TO MONITOR.
[2020-01-27 20:46] VITALS: BP 145/96
--- NOTE | 2020-01-28 | NUR ---
PT RESTING IN BED AT THIS TIME. SHAKES HEAD NO WHEN ASKED IF SHE IS IN PAIN. TUBE FEED INTACT AND TOLERATING. NO RESIDUAL AT THIS TIME. WILL CONTINUE TO MONITOR.
[2020-01-28 04:25] VITALS: BP 93/60
--- NOTE | 2020-01-28 07:02 | NUR ---
PT RESTING IN BED AT THIS TIME. DENIES PAIN OR DISCOMFORT. BREATHING E/U ON RA. NO S/S OF ACUTE DISTRESS NOTED. ALL NEEDS AND CONCERNS ADDRESSED AT THIS TIME. BED AT LOWEST POSITION. WILL ENDORSE TO DAY NURSE.
--- NOTE | 2020-01-28 07:12 | NUR ---
RECIEVED REPORT FROM [facility] NURSE. PATIENT IS CURRENTLY ON ISOLATION PRECAUTIONS DUE TO POSITIVE COVID 19 STATUS. PATIENT IS CURRENTLY ON ROOM AIR AND OXYGEN SATURATION IS AT 97%. TUBE FEEDING INFUSING AT 55ml/HOUR- PATIENT TOLERATING WELL. IV SITE TO THE RIGHT HAND CURRENTLY SALINE LOCKED. NO INDICATIONS OF DISTRESS/PAIN AT THIS TIME. SAFETY PRECAUTIONS IN PLACE. WILL CONTINUE TO PROVIDE CARE FOR PATIENT.
[2020-01-28 08:36] VITALS: BP 126/86
[2020-01-28 08:37] VITALS: BP 120/52
[2020-01-28 09:04] LABS: BILIRUBIN DIRECT 0.16 mg/dL (0.0-0.2); BILIRUBIN TOTAL 0.4 mg/dL (0.20-1.00); TOTAL PROTEIN, SERUM 6.9 g/dL (6.4-8.2)
[2020-01-28 09:27] LABS: ALBUMIN 2.4 g/dL (3.4-5.0)
[2020-01-28 12:05] VITALS: BP 147/100
--- NOTE | 2020-01-28 13:12 | NUR ---
Follow up Nutrition Assessment: 222B NEGIN BLANTON THI 60F HR Dx: PNA, COVID positive PMHx: Bronchitis, PNA, Parkinson's PSHx: none noted Labs: Albumin: 2.4L, BG 246H, BUN: 20H, AST 142H, ALT 205H, Alk ph 174H Meds: Ambien, Ativan, Zosyn, Pepcid, Lovenox, Decadron, Sinemet, Vancocin, morphine, norco, Phenergan, remdesvir, Sinemet, Tylenol, ventolin TF: Jevity at 55ml/hr fwf 70ml Q4H via GT (provides a volume of 1320ml, 1584kcal, 73.26g protein, and 1065ml free water meeting 100% of estimated kcal and protein needs) TF infusion: (01/27): 1210 mL, (01/24) 775ml Edema: none noted Last BM: 01/25 GI: Bowel sounds active in all quadrants per nursing assessment Skin: no open wound noted; intact Ab: 15 I&O: (01/27): 1650/1400= -352, (01/24)1385/2600ml = -1215ml, (01/23) 300ml/1000ml = -1000ml Per H and P (01/22) pt is a 60 yo female h/o Parkinson's, who was recently hospitalized for covid-19 pneumonia, was doing better and on RA, was sent home on PO antibiotics. She was doing well until yesterday when she started to have more symptoms with SOB, started spiking fever today. She was dyspneic, and was taken to the ED for an evaluation. She was again hypoxic. She was admitted to tele for further treatments. Pt was admitted with dx: Hypoxia, PNA, respiratory failure, Parkinson's, COVID19 RD Note (01/24) Pt was in isolation, and assessment was done relied on pt's medical records and RN. Per RN, pt's tube feeding was infusing at goal rate 55ml/hr, and pt was tolerating tube feed with no residuals today. Additionally, pt did not exhibit any signs of GI distress, but pt's last BM was 01/22. RN stated that she would keep monitoring. RD note (01/27): Per pt's primary nurse pt is tolerating current TF regimen, EN running at goal rate (55 mL/hr) with no GRV. FWF remains the same at 70 mL Q4H. No signs of nausea, vomiting, diarrhea, constipation or ABD distension/bloating per nursing. Estimated nutritional needs based on current body weight (50kg) Energy: 1747-8822 kcal/day (30-35 kcal/kg for underweight for age, viral infection) Protein: 60-75 g/day (1.2-1.5 g/kg for underweight for age, viral infection) Fluid: 6629-6736 ml/day (1 ml/kcal) or per MD Nutrition Diagnosis: 1. Altered GI function r/t pathophysiological cause a/e/b pt dependence on enteral feeding for nutrition. Intervention 1. Continue Jevity 1.2 at 55ml/hr. Regimen at goal rate will provide a volume of 1320ml, 1584kcal, 73.26g protein, and 1065ml free water meeting 100% of estimated kcal and protein needs 2. Continue fluid flush 70ml Q4H to provide additional 420ml fluid. Total free fluid with tube feed: 1485ml. Monitor/Evaluate Goal: Pt meeting at least 75% of estimated needs via nutrition support (met, ongoing goal) Monitor: Nutrition support tolerance, Labs, GI function, Body weight F/U in 2-3 days as high risk 01/29-01/30
[2020-01-28 16:40] VITALS: BP 119/80
--- NOTE | 2020-01-28 18:31 | NUR ---
PATIENT CURRENTLY AWAKE AND ALERT- UNABLE TO ASSESS LEVEL OF ORIENTATION, PATIENT NON- COMMUNICATIVE. PATIENT REMAINS ON ISOLATION PRECAUTIONS DUE TO POSITIVE COVID-19 STATUS. PATIENT IS ON ROOM AIR AND OXYGEN SATURATION IS AT 99% ON ROOM AIR. PATIENT RECIEVED 4/4 DOSE OF REMDESIVIR TODAY. PATIENT ALSO ON ZOSYN. PATIENT CURRENTLY RECIEVING JEVITY TUBE FEEDING AT 55ml/HOUR. HENSON IN PLACE DRAINING YELLOW URINE TO GRAVITY. WILL ENDORSE ALL FURTHER CARE TO THE NOC NURSE.
--- NOTE | 2020-01-28 19:50 | NUR ---
LATE ENTRY: PT. AWAKE, ALERT, NON-VERBAL. ABLE TO REPOND TO YES AND NO QUESTIONS. NODS HER HEAD APPROPRIATELY TO QUESTIONS. NEEDS ANTICIPATED. BREATH SOUNDS CLEAR THROUGHOUT LUNG HERNANDEZ, RESP. EVEN, UNLABORED. PT. ON RA. BLL DIMINISHED. NO SOB NOTED. O2 SAT. 97%. NSR ON MONITOR, NO ECTOPIES NOTED. NO EDEMA NOTED TO EXTREMITIES. PEDAL PULSES STRONG MICHAEL. ABD. SOFT AND FLAT, BOWEL SOUNDS ACTIVE. PEG TUBE IN-SITU. TF JEVITY AT 55CC/HR. PT. TOLERATING WELL. NO RESIDUAL NOTED. IV SITE INTACT. HOB 35 DEGREES. CALL LIGHT WITHIN REACH. SIDERAILS UP X2.
[2020-01-28 20:20] VITALS: BP 138/79
--- NOTE | 2020-01-28 21:35 | NUR ---
FACETIMED PATIENT'S DAUGHTER, ANA FOR A FEW MINUTES. PT.'S DAUGHTER WAS ABLE TO COMMUNICATE WITH HER. PT. SMILED DURING FACETIME.
--- NOTE | 2020-01-29 00:14 | NUR ---
PT. SLEEPING AT THIS TIME, TF BEING TOLERATED THUS FAR. PT. ON RA, WITH SATURATION LEVEL AT 98%. CALL LIGHT REMAINS WITHIN REACH.
[2020-01-29 05:49] VITALS: BP 132/86
--- NOTE | 2020-01-29 06:26 | NUR ---
PT. REMAINS ON ROOM AIR, SATURATION LEVEL 98%. NO SIGNS OF DISTRESS THROUGHOUT THE NIGHT. PT. TOLERATING TF. NO RESIDUAL NOTED. IV SITE REMAINS INTACT. F/C DRAINING WELL TO GRAVITY. WILL ENDORSE PATIENT CARE TO INCOMING NURSE.
--- NOTE | 2020-01-29 07:30 | NUR ---
PT RECIEVED FROM DAY NURSE. PT RESTING IN BED AT THIS TIME. PT AWAKE AND ALERT, TRACKS WITH EYES, ABLE TO SHAKE HEAD YES AND NO TO MAKE NEEDS KNOWN. TELE 3, NSR. PALPABLE PULSES, NO EDEMA NOTED AT THIS TIME. BREATHING E/U ON RA. 99 SPO2 AT THIS TIME. ABD SOFT AND FLAT. PT INCONTINENT, CLEANING NEEDED. HENSON INTACT AND DRAINING YELLOW URINE. PT BED BOUND AT BASELINE. TURNING AND REPOSITIONING Q2. IV TO LUPE GALDAMEZ. BED AT LOWEST POSITION. CALL LIGHT WITHIN REACH. WILL CONTINUE TO MONITOR.
[2020-01-29 07:38] LABS: BASOPHIL % 0.3 % (0-2); RED CELL DISTRIBUTION WIDTH 12.7 % (11.5-14.5)
[2020-01-29 07:52] VITALS: BP 113/92
[2020-01-29 08:03] LABS: PLATELET COUNT 560 x10^3mcL (130-400)
[2020-01-29 08:25] LABS: CALCIUM 8.8 mg/dL (8.5-10.1); CARBON DIOXIDE 29.5 mmol/L (21-32); CHLORIDE SERUM 97 mmol/L (98-107); CREATININE SERUM 0.8 mg/dL (0.6-1.0); GFR1 > 60 mL/min; GLUCOSE SERUM 183 mg/dL (74-106); POTASSIUM SERUM 4.3 mmol/L (3.5-5.1); SODIUM SERUM 134 mmol/L (136-145)
[2020-01-29 12:18] VITALS: BP 105/63
--- NOTE | 2020-01-29 13:16 | NUR ---
REPORT GIVEN TO CARMEL JAIN. PT RESTING IN A POSITION OF COMFORT. ALL NEEDS AND CONCERNS ADDRESSED. NO S/S OF PAIN OR DISCOMFORT NOTED.
--- NOTE | 2020-01-29 13:30 | NUR ---
RECEIVED PT FROM AM SHIFT SUSY CONWAY, PT IS AWAKE, NON VERBAL. NO S/S OF RESPIRATROY DISTRESS, PT IS ON ROOM AIR PO2 96%, NO S/S OF PAIN OR DISCOMFORT. PT CONTINUE ON G TUBE FEEDING. NO RESIDUAL NOTED. HEAD OF BED IS ELEVATED. IV AT RIGHT HAND, NO LEAKING, NO INFILTRATION. ALL ADLS ASSIST, ALL NEED MET, CALL LIGHT IN REACH, WILL CONTINUE TO MONITOR.
--- NOTE | 2020-01-29 13:30 | NUR ---
RECEIVED PT FROM AM SHIFT SUSY CONWAY, PT IS AWAKE, NON VERBAL. NO S/S OF RESPIRATROY DISTRESS, PT IS ON ROOM AIR PO2 96%, NO S/S OF PAIN OR DISCOMFORT. PT CONTINUE ON G TUBE FEEDING. NO RESIDUAL NOTED. AK CHIN OF BED IS ELEVATED. IV AT RIGHT HAND, NO LEAKING, NO INFILTRATION. ALL ADLS ASSIST, ALL NEED MET, CALL LIGHT IN REACH, WILL CONTINUE TO MONITOR.
--- NOTE | 2020-01-29 14:50 | NUR ---
FACETIME WITH PT'S BOTH DAUGHTER. PT IS AWAKE, NO S/S OF RESPIRATORY DISTRESS PO2 96% IN ROOM AIR. CONTINUE ON G TUBE FEEDING. HOB IS ELEVATED. WILL CONTINUE TO MONITOR THE PT.
[2020-01-29 16:26] VITALS: BP 109/70
--- NOTE | 2020-01-29 18:19 | NUR ---
PT IS AWAKE, NON VERBAL. NO S/S OF RESPIRATORY DISTRESS, NO S/S OF PAIN OR DISCOMFORT, CONTINUE G TUBE FEEDING. NEW BOTTLE TUBE FEEDING IS HANGED. HOB IS ELEVATED. IV AT RIGHT HAND, NO LEAKING, NO INFILTRATION. CHANGE THE PT POSITIVE TO RIGHT SIDE. ALL ADLS ASSIST, ALL NEED MET, CALL LIGTHT IN REACH, WILL CONTINUE TO MONITOR.
[2020-01-29 22:03] VITALS: BP 102/69
--- NOTE | 2020-01-30 00:02 | NUR ---
PT RECIEVED FROM CARMEL JAIN. PT RESTING IN BED AT THIS TIME. NO S/S OF PAIN OR DISCOMFORT NOTED. BREATHING E/U ON RA. TUBE FEED IN PLACE AND TOLERATING AT THIS TIME. NO RESIDUAL NOTED AT THIS TIME.
--- NOTE | 2020-01-30 01:06 | NUR ---
ENDORSE CARE TO SUSY CONWAY.
[2020-01-30 06:00] VITALS: BP 101/67
--- NOTE | 2020-01-30 06:04 | NUR ---
PT RESTING IN BED AT THIS TIME. NO S/S OF PAIN OR DISCOMFORT NOTED. PT BREATHING E/U ON RA. GTUBE FEED INTACT AND INFUSING AT THIS TIME. NO RESIDUAL NOTED. PT TOLERATING WELL. WILL ENDORSE TO DAY NURSE.
[2020-01-30 06:46] LABS: BASOPHIL % 0.2 % (0-2)
[2020-01-30 06:53] LABS: CALCIUM 8.5 mg/dL (8.5-10.1); CARBON DIOXIDE 30.7 mmol/L (21-32); CHLORIDE SERUM 97 mmol/L (98-107); CREATININE SERUM 0.9 mg/dL (0.6-1.0); GFR1 > 60 mL/min; GLUCOSE SERUM 187 mg/dL (74-106); POTASSIUM SERUM 4.2 mmol/L (3.5-5.1); SODIUM SERUM 135 mmol/L (136-145)
--- NOTE | 2020-01-30 07:30 | NUR ---
PATIENT RECEIVED FROM PM NURSE. PT RESTING IN BED AT THIS TIME. NO ACUTE DISTRESS NOTED. PT IS AWAKE AND ALERT. ABLE TO MAKE NEEDS KNOWN WITH SHAKING OF THE HEADS TO YES AND NO QUESTIONS. DIMINISHED LUNG SOUNDS BLL. BREATHING E/U ON RA. NO SOB NOTED. TELE #3. NSR. NO SIGNS OF CHEST PAIN. PULSES EVEN AND PALPABLE. NO EDEMA NOTED. ON GTUBE FEEDING. JEVITY 1.2 RUNNING AT 55ML/HR. NO RESIDUAL NOTED. ACTIVE BS X4. ABD SOFT AND NONDISTENDED. F/C IN PLACE DRAINING YELLOW URINE VIA GRAIVTY. BEDBOUND. SKIN INTACT. NO SIGNS OF PAIN OR FACIAL DISTRESS. IV TO RHAND. SL. INTACT. FLUSHES WITH NO DIFFICULTY. HEAD OF THE BED ELEVATED. BED AT LOWEST POSITION. SIDE RAILS UP X2. DROPLET PRECAUTION OBSERVED. CALL BUTTON WITHIN REACH. WILL CONTINUE TO MONITOR.
[2020-01-30 08:39] LABS: PLATELET COUNT 579 x10^3mcL (130-400)
[2020-01-30 08:47] VITALS: BP 105/69
[2020-01-30 12:08] VITALS: BP 105/69
[2020-01-30 13:11] VITALS: BP 123/80
--- NOTE | 2020-01-30 14:20 | NUR ---
SPOKE TO DAUGHTER JUSTIN AND REVIEWED PATIENT'S DISCHARGE PAPERWORK OVER THE PHONE. PT'S DAUGHTER VERBALIZED UNDERSTANDING. DAUGHTER SAID THAT SHE WILL HAVE A MEETING WITH OTHER FAMILY MEMBERS TO SEE WHO CAN PICK PATIENT UP FROM THE HOSPITAL. CHARGE NURSE MASOUD MADE AWARE OF THE CURRENT SITUATION.
--- NOTE | 2020-01-30 18:44 | NUR ---
PRIOR TO DISCHARGE AND DURING TRANSFER, PATIENT'S PEG TUBE BECAME DISLODGED. CHARGE NURSE MASOUD MADE DR. DAVILA AWARE OF THE INCIDENT AND DR DAVILA ORDERED A GI CONSULT WITH DR DAVIES.
--- NOTE | 2020-01-30 18:48 | NUR ---
SPOKE TO DR DAVILA AND REQUESTED A RAPID COVID TEST. DR DAVILA AGREED TO IT. ORDER NOTED AND CARRIED OUT. EXPLAINED PROCEDURE TO PATIENT. PATIENT TOLERATED THE PROCEDURE WELL. SAMPLE DELIVERED TO LAB.
--- NOTE | 2020-01-30 19:30 | NUR ---
PT RECEIVED FROM AM NURSE. PT AWAKE AND ALERT, NONVERBAL, ABLE TO TRACK WITH EYES, UNABLE TO MAKE NEEDS KNOWN OR FOLLOW SIMPLE COMMAND. TELE #3, NSR, NO S/S OF CP/PRESSURE OBSERVED. PULSES PALPABLE, NO EDEMA PRESENT. BREATHING IS EVEN AND UNLABORED ON RA, CONT PULSE OX-99%, NO RESP DSITRESS NOTED. ABD SOFT AND NONDISTENDED, BOWEL TONES ACTIVE X4 QUAD, NO N/V PRESENT. TUBE FEEDING ON HOLD PT'S PEG TUBE WAS DISLODGED, SMALL STOMA NOTED AND DRY GAUZE PLACED, CDI. VOIDS FREELY, EPISODES OF URINARY INCONTINENCE. GENERALIZED WEAKNESS, BEDBOUND, ON AIR MATTRESS, TURN AND REPOSITION Q2H. SKIN IS WARM AND DRY, INTACT. NO S/S OF PAIN OBSERVED. NO IV ACCESS PRESENT AT THIS TIME PT WAS SUPPOSED TO BE DISCHARGED, WILL REINSERT NEW IV. NO ACUTE DISTRESS NOTED. BED IN LOWEST SETTING, FALL PRECAUTIONS IN PLACE, SIDE RAILS UP X3, CALL LIGHT WITHIN REACH. WILL CONT TO MONITOR.
--- NOTE | 2020-01-30 19:34 | NUR ---
CALLED DR DAVIES THREE TIMES TO UPDATE HIM ON THE SITUATION. NO RESPONSE. WILL ENDORSE CARE TO PM NURSE FOR CONTINUITY OF CARE. ALL QUESTIONS/CONCERNS ANSWERED.
--- NOTE | 2020-01-30 21:17 | NUR ---
CALLED DR DAVIES'S CELL TO UPDATE PHYSICIAN REGARDING PT'S PEG TUBE DISLODGED, BRIEF MESSAGE AND CALL BACK NUMBER LEFT. WILL AWAIT CALL BACK.
[2020-01-30 22:17] VITALS: BP 155/98
--- NOTE | 2020-01-31 00:45 | NUR ---
PT RESTING IN BED WITH EYES CLOSED, BUT IS EASILY AROUSABLE. BREATHING IS EVEN AND UNLABORED, NO RESP DISTRESS NOTED. NO S/S OF PAIN OBSERVED. IV ABX INFUSING WELL TO MIGUEL A, SITE WNL. NO ACUTE DISTRESS NOTED. FALL PRECAUTIONS IN PLACE. CALL LIGHT WITHIN REACH. WILL CONT TO MONITOR.
--- NOTE | 2020-01-31 06:08 | NUR ---
PT SLEPT WELL THROUGHOUT THE EVENING. BREATHING IS EVEN AND UNLABORED ON RA, NO RESP DISTRESS NOTED. NO S/S OF PAIN OBSERVED. IV TO MIGUEL A, PATENT AND INTACT, SITE FREE FROM REDNESS OR SWELLING. NO ACUTE CHANGES ENCOUNTERED DURING SHIFT. ALL NEEDS MET AND ANTICIPATED. CALL LIGHT WITHIN REACH. WILL ENDORSE CARE TO AM NURSE.
[2020-01-31 06:18] VITALS: BP 118/79
--- NOTE | 2020-01-31 07:20 | NUR ---
RECEIVED AWAKE, TRACKS WITH HER EYES, TELE 3, NSR, PALPABLE PULSES, NO EDEMA, DIMINISHED BLF , RA, O2 SAT 9&%, VOIDS FREELY, INCOTNINENT, GENERALIZED WEAKNESS, BED BOUND, LLQ STOMA FROM PEG TUBE WITH CDI DRESSING, NO SIGNS OF PAIN AT THIS TIME, IV INTACT AT MIGUEL A, NO REDNESS OR SWELLING, CALL LIGHT WITHIN REACH,BED AT LOWEST POSITION, SIDE RAILS UP.
--- NOTE | 2020-01-31 07:34 | NUR ---
Follow-up Nutrition Assessment: 222B HARVINDER, NEGIN RODRIGUEZ THI 60F HR (late entry from 01/29) Dx: PNA, COVID positive PMHx: Bronchitis, PNA, Parkinson's Labs: (01/27) Albumin: 2.4L, BG 246H, BUN: 20H, AST 142H, ALT 205H, Alk ph 174H (01/29) Na 135L, Cl 97L, BUN 26H, BG 187H *BUN increased Meds: Pepcid, Sinemet, Lovenox, Decadron TF: Jevity at 55ml/hr fwf 70ml Q4H via GT (provides a volume of 1320ml, 1584kcal, 73.26g protein, and 1065ml free water meeting 100% of estimated kcal and protein needs) TF infusion: (01/29) 1320ml, (01/28) 660ml, (01/27): 1210 mL, (01/24) 775ml; Avml (79% of kcal needs and 92% of protein needs) Weights: (01/29) 49.895kg/110lbs, (01/22) 110lbs *no weight changes noted Edema: none noted Last BM: x4 BM noted on 01/28 per I&O Skin: skin intact Ab: 15 I&O: (01/29) 1920/1000ml = 920ml, (01/28) 1110/2000ml = -890ml, (01/27): 1650/1400= -352, (01/24)1385/2600ml = -1215ml, (01/23) 300ml/1000ml = -1000ml Per last RD note (01/27): Per pt's primary nurse pt is tolerating current TF regimen, EN running at goal rate (55 mL/hr) with no GRV. FWF remains the same at 70 mL Q4H. No signs of nausea, vomiting, diarrhea, constipation or ABD distension/bloating per nursing. RD Note (01/29): Pt remained in isolation during the time of visit. Per pt's primary RN, pt was tolerating tube feed with no residuals or GI distress observed. RN also denied BM Estimated nutritional needs based on current body weight (50kg) Energy: 4021-7612 kcal/day (30-35 kcal/kg for underweight for age, viral infection) Protein: 60-75 g/day (1.2-1.5 g/kg for underweight for age, viral infection) Fluid: 5635-3400 ml/day (1 ml/kcal) or per MD Nutrition Diagnosis: 1. Altered GI function r/t pathophysiological cause a/e/b pt dependence on enteral feeding for nutrition. (ongoing) Intervention 1. Continue Jevity 1.2 at 55ml/hr. Regimen at goal rate will provide a volume of 1320ml, 1584kcal, 73.26g protein, and 1065ml free water meeting 100% of estimated kcal and protein needs 2. Continue fluid flush 70ml Q4H to provide additional 420ml fluid. Total free fluid with tube feed: 1485ml. Monitor/Evaluate Goal: Pt meeting at least 75% of estimated needs via nutrition support (met, ongoing goal) Monitor: Nutrition support tolerance, Labs, GI function, Body weight F/U in 2-3 days as high risk 01/31-3
[2020-01-31 08:21] VITALS: BP 98/67
--- NOTE | 2020-01-31 09:19 | NUR ---
MEDICATIONS GIVEN PER EMAR. SINEMET ON HOLD. PATIENT'S PEG TUBE DISLODGED .HIGH RISK OF ASPIRATION.
--- NOTE | 2020-01-31 10:15 | NUR ---
SPOKE WITH ODILON BLANTON AND MADE AWARE THAT DR DAVIES WILL DO A PEG INSERTION. ODILON JEONG CONSENTED TO PROCEDURE. PER ODILON JEONG, IS IT OK TO DISCHARGE PATIENT AFTER PROCEDURE. REPLIED TO OIDLON JEONG , I WILL ASK CONFIRMATION FROM DR DAVILA BEFORE LETTING HIM KNOW.
--- NOTE | 2020-01-31 10:49 | NUR ---
DR DAVIES AT BEDSIDE . PEG TUBE INSERTION DONE. PATIENT TOLERATED PROCEDURE WITH NO SIGNS OF PAIN. MORPHINE IVP NOT GIVEN.
[2020-01-31 12:45] VITALS: BP 111/76
--- NOTE | 2020-01-31 13:12 | NUR ---
SPOKE WITH DR DAVILA, PER DR DAVILA, PATIENT MAY DISCHARGE AFTER AXR PEG PLACEMENT CONFIRMATION.
[2020-01-31 13:17] VITALS: BP 111/76
--- NOTE | 2020-01-31 13:49 | NUR ---
PEG TUBE PATENCY CHECKED, + GURGLING SOUNDS, NO RESIDUAL, PATENT. MEDICATIONS GIVEN PER EMAR AND FLUSHED WITH STERILE SOLUTION. JEVITY FEEDING CONTINUED WITH 55ML/HR , FLUSH 70CC Q4H. PEG TUBE DRESSING SECURED WITH CDI DRESSING AND ABD BINDER.
--- NOTE | 2020-01-31 15:45 | NUR ---
REMOVED JEVITY FEEDING, THEN FLUSHED WITH STERILE IRRIGATION SOLUTION. PEG TUBE IN PLACE. ABD BINDER IN PLACE. IV REMOVED. CATHETER INTACT, ID BAND REMOVED. PATIENT CHANGED TO DIAPERS . TELEMONITOR REMOVED AND GIVEN TO RICARDO. PATIENT DISCHARGED PER WHEELCHAIR. DISCHARGE INSTRUCTIONS EXPLAINED TO SON, UNDERSTOOD INSTRUCTIONS, SIGNED FORM AND PLACED ON CHART.
== END 2020-01-31 15:45 | disposition home or self-care (01) | DRG 137 ==
LOC: ED 15:45 → DU 17:31
PROVIDERS: Emergency Medicine; ADMIT Internal Medicine; ATTEND Internal Medicine
PROC: XW13325 Transfusion of Convalescent Plasma (Nonautologous) into Peripheral Vein, Percutaneous Approach, New Technology Group 5 (ICD-10-PCS; principal; 2020-01-24)
PROC: XW033E5 Introduction of Remdesivir Anti-infective into Peripheral Vein, Percutaneous Approach, New Technology Group 5 (ICD-10-PCS; 2020-01-24)
PROC: XW033E5 Introduction of Remdesivir Anti-infective into Peripheral Vein, Percutaneous Approach, New Technology Group 5 (ICD-10-PCS; 2020-01-25)
PROC: 0DH67UZ Insertion of Feeding Device into Stomach, Via Natural or Artificial Opening (ICD-10-PCS; 2020-01-31)
DX: U07.1 COVID-19 (principal); J96.01 Acute respiratory failure with hypoxia; A41.9 Sepsis, unspecified organism; J15.9 Unspecified bacterial pneumonia; D68.9 Coagulation defect, unspecified; G20 Parkinson's disease; F02.80 Dementia in other diseases classified elsewhere, unspecified severity, without behavioral disturbance, psychotic disturbance, mood disturbance, and anxiety; K94.23 Gastrostomy malfunction; I10 Essential (primary) hypertension; Z79.899 Other long term (current) drug therapy; Z79.2 Long term (current) use of antibiotics
CPT/HCPCS: 36600; 43760; 82962; 83880; 85378; 87804; G0378; J0456; J1100; J1650; J2060; J2270; J2543; J3370; J3490; J3535; J7030; J7050; J7613; J7644; Q0092; Q9967

== ENCOUNTER 2020-02-12 09:34 | Emergency (ER) | payer OTHER ==
[~2020-02-12] VITALS: Ht 154.9 cm; Wt 47.6 kg
[2020-02-12 09:39] VITALS: Ht 154.9 cm; Wt 47.6 kg
[2020-02-12 10:44] LABS: BASOPHIL % 1.7 % (0-2); PLATELET COUNT 296 x10^3mcL (130-400); RED CELL DISTRIBUTION WIDTH 13.3 % (11.5-14.5)
[2020-02-12 11:21] LABS: ALBUMIN 3.2 g/dL (3.4-5.0); ALKALINE PHOSPHATASE 110 U/L (46-116); ALT/SGPT 31 U/L (14-59); AST/SGOT 30 U/L (15-37); BILIRUBIN TOTAL 0.32 mg/dL (0.20-1.00); CALCIUM 9.8 mg/dL (8.5-10.1); CARBON DIOXIDE 32.1 mmol/L (21-32); CHLORIDE SERUM 104 mmol/L (98-107); CREATININE SERUM 0.9 mg/dL (0.6-1.0); GFR1 > 60 mL/min; GLUCOSE SERUM 97 mg/dL (74-106); POTASSIUM SERUM 4.3 mmol/L (3.5-5.1); SODIUM SERUM 142 mmol/L (136-145)
[2020-02-12 14:20] VITALS: BP 147/88
== END 2020-02-12 14:12 | disposition home or self-care (01) ==
LOC: ED 09:34
PROVIDERS: Emergency Medicine
DX: N30.00 Acute cystitis without hematuria (principal); R33.9 Retention of urine, unspecified; K59.00 Constipation, unspecified; N13.30 Unspecified hydronephrosis
CPT/HCPCS: J0696; Q0092

== ENCOUNTER 2020-05-07 16:58 | Inpatient (IN) | payer OTHER, SELFPAY ==
[~2020-05-07] VITALS: Ht 162.6 cm; Wt 49.0 kg
--- NOTE | 2020-05-07 17:06 | NUR ---
PT BIB SON FROM HOME C/O FEVER AND SOB X 2 DAYS. SON STATES PT IS MORE WEAK THAN USUAL SINCE 05/04/2020.PT IS NPO USES GTUBE. UNABLE TO COMMUNICATE NEEDS. PER SON PT USUALLY ABLE TO POINT AT WHAT SHE WANTS. NO FACIAL GRIMACING NOTED. PT SITTING UP ON WHEELCHAIR. WILL CONTINUE TO MONITOR AWAITING FURTHER ORDERS
--- NOTE | 2020-05-07 17:54 | NUR ---
PT OUT TO XRAY
--- NOTE | 2020-05-07 17:56 | NUR ---
PER PERMIT SPECIALIST UNABLE TO TAKE XRAY, WAITING FOR PATIENT TO BE PLACED IN ROOM.
[2020-05-07 19:28] LABS: BASOPHIL % 0 % (0-2); PLATELET COUNT 347 x10^3mcL (130-400); RED CELL DISTRIBUTION WIDTH 14.7 % (11.5-14.5)
--- NOTE | 2020-05-07 19:45 | NUR ---
RECEIVED PATIENT AFTER BEDSIDE REPORT. NEW TRIAGE. PATIENT AWAKE, ALERT, DOES NOT SPEAK. SHE NODDED YES/NO TO SIMPLE QUESTIONS. SHE DENIES PAIN. SHE HAS PARKINSON'S TREMORS OF HER LEGS AND HER ARMS ARE CONTRACTED. SON AT BEDSIDE. PATIENT SPEAKS ARABIC AND HER SON IS ABLE TO SPEAK TO HER. DOBBY LOOMS PEGGER PLACED ON PATIENT. LAB HERE AND BLOOD DRAWN ORDERED.
[2020-05-07 19:48] LABS: CARBON DIOXIDE 29.3 mmol/L (21-32); CREATININE SERUM 1.2 mg/dL (0.6-1.0); POTASSIUM SERUM 4.3 mmol/L (3.5-5.1)
[2020-05-07 19:52] LABS: BILIRUBIN TOTAL 0.2 mg/dL (0.20-1.00)
[2020-05-07 20:04] LABS: ALBUMIN 2.7 g/dL (3.4-5.0); TOTAL PROTEIN, SERUM 8.7 g/dL (6.4-8.2)
[2020-05-07 20:35] LABS: C REACTIVE PROTEIN 25.9 mg/dL (<=0.9)
--- NOTE | 2020-05-07 21:43 | NUR ---
20 GAUAGE IV CATH INSERTED LEFT UPPER ARM. PATIENT TOLERATED PROCEDURE WELL. STRAIGHT CATH PERFORMED WITH PATIENT'S PERMISSION. URINE OBTAINED FOR UA AND CULTURE WAS YELLOW AND CLOUDY. 300 ML IN TOTAL.
[2020-05-07 22:04] LABS: UA SPECIFIC GRAVITY 1.015 (1.005-1.035); microscopic required? YES; urine erythrocyte 2+ (NEGATIVE)
--- NOTE | 2020-05-07 22:48 | NUR ---
FIRST 1000 ML OF NORMAL SALINE BOLUS STARTED. ROCEPHIN 1 GM IVPB STARTED WELL. PATIENT IS CHILLING. TEMPERATURE IS 100.8 ORAL.
--- NOTE | 2020-05-08 01:00 | NUR ---
CHANGED PATIENT'S DIAPER SIMCE SHE IS INCONTINENT OF URINE AND STOOL. ONLY INCONTINENT OF URINE AT THIS TIME. SKIN REMAINS INTACT. CLEAN DIAPER PLACED ON PATIENT. COVERED WITH A BLANKET SINCE PATIENT COLD PER SON. SON HAS GONE HOME. COLOR PALE. REMAINS IN SINUS TACHYCARDIA. RATE 103/MIN. IVF NORMAL SALINE INFUSING LEFT UPPER ARM AT 150 ML/HR, IV SITE IS CLEAR WITHOUT REDNESS OR SWELING. NO EVIDENCE OF PAIN ELICITED FROM PATIENT.
--- NOTE | 2020-05-08 05:17 | NUR ---
PATIENT INCONTINENT OF LARGE AMOUNT OF URINE. PERICARE GIVEN AND CLEAN, DRY DIAPER PLACED ON PATIENT. PATIENT'S SKIN IS INTACT. PATIENT UNABLE TO MOVE HERSELF OR REPOSITION HERSELF SECONDARY TO PARKINSON'S DISEASE. ARMS ARE CONTRACTED AND LEGS ARE STIFF.
[2020-05-08 05:52] VITALS: BP 165/95
[2020-05-08 06:53] LABS: BASOPHIL % 0.3 % (0-2); PLATELET COUNT 311 x10^3mcL (130-400); RED CELL DISTRIBUTION WIDTH 14.4 % (11.5-14.5)
[2020-05-08 07:05] LABS: ALKALINE PHOSPHATASE 136 U/L (46-116); ALT/SGPT 75 U/L (14-59); AST/SGOT 52 U/L (15-37); BILIRUBIN TOTAL 0.23 mg/dL (0.20-1.00); CALCIUM 7.8 mg/dL (8.5-10.1); CARBON DIOXIDE 27.7 mmol/L (21-32); CHLORIDE SERUM 105 mmol/L (98-107); CREATININE SERUM 0.8 mg/dL (0.6-1.0); GFR1 > 60 mL/min; GLUCOSE SERUM 108 mg/dL (74-106); MAGNESIUM 2.3 mg/dL (1.8-2.4); SODIUM SERUM 139 mmol/L (136-145); TOTAL PROTEIN, SERUM 7.2 g/dL (6.4-8.2)
[2020-05-08 07:07] LABS: ALBUMIN 2.1 g/dL (3.4-5.0)
--- NOTE | 2020-05-08 07:21 | NUR ---
PT ALERT AND AWAKE BUT NOT FOLLOWING SIMPLE COMMANDS. PT HAS HX OF PARKISONS DISEASE. RESP E/U, LUNGS DIMINSHED AT BASES, ON FULL CM, NSR NOTED. PT DOES NOT APPEAR TO BE IN ACUTE DISTRESS AT THIS TIME. 20G IV IN L ARM WITH NACL 9% RUNNING AT 80ML/HR. PER LATENT PRINT EXAMINER PT IS INCONTINENT, ABD SOFT AND NONTENDER. WILL CONT TO MONITOR.
--- NOTE | 2020-05-08 09:45 | NUR ---
PT AWAKE AND ALERT, PT MEDICATED ORDERED. PT DOES NOT APPEAR TO BE IN ANY ACUTE DISTRESS AT THIS TIME.
--- NOTE | 2020-05-08 10:51 | NUR ---
REPORT GIVEN TO NOE JAIN TO ASSUME PT CARE
--- NOTE | 2020-05-08 11:00 | NUR ---
RECIEVED PT FROM ER, NON-VERBAL. EYES TRACE, APPEARS TO FOLLOW COMMANDS,APPEARS TO HAVE SMALL JOLTING GESTURES, CONTRACTURES & PILL ROLLING OF HANDS. NO ACUTE DISTRESS. NOTED TELE#13 PRESENTING WITH SR.PULSES+2 BUE & BLE CURRENTLY ON RA, NO RESP DISTRESS NOTED. ABD SOFT NON-TENDER. BOWEL SOUNDS NORMOACTIVE. LLQ G-TUBE, CDI. BED IN LOWEST POSITION, CALL LIGHT IN REACH, WILL CONTINUE TO MONITOR.
[2020-05-08 12:38] VITALS: BP 125/78
--- NOTE | 2020-05-08 13:30 | NUR ---
TUBE FEEEDING STARTED VIA G-TUBE. FORMULA: NEPRHO @25ML/HR FLUSH 250ML GOAL: 50ML/HR. WILL CONTINUE TO ASSESS PATIENT AND FEEDING TUBE INFSUION RATE PATIENT TOLERATES.
[2020-05-08 14:53] VITALS: BP 125/78
[2020-05-08 17:14] VITALS: BP 153/88
--- NOTE | 2020-05-08 18:39 | NUR ---
PT REMAINS IN BED SLEEPING. BREATHING E/U TO RA. TELE#13 PRESENTING WITH SR. L-FOARM 20G IV CDI. G-TUBE IN PLACE AND NEPHRO TUBE FEEDING RUNNING AT 25ML/HR.BED IN LOWEST POSITON, CALL LIGHT IN REACH, WILL ENDORSE TO GUEST LAUNDRY ATTENDANT NURSE.
--- NOTE | 2020-05-08 19:20 | NUR ---
RECEIVED PATIENT FROM DAY SHIFT NURSE. PATIENT IN NO ACUTE DISTRESS AT THIS TIME. AWAKE, NON VERBAL, PILL ROLLING TREMOR NOTED. TELE #[address], NSR. NO S/S F CHEST PAIN/PRESSURE, NO DISTRESS NOTED. EU BREATHING NOTED ON ROOM AIR. LAYING W/HOB ELEVATED. GTUBE TO LLQ WNL. FEEDING INFUSING AT 25 ML/HR, TOLERATING WELL. NO N/V. ABD FLAT/SOFT, NO DISTENTION NOTED. FLUIDS INFUSING WELL. IV WNL. APPEARS CALM AT THIS TIME. BED IN LOWEST POSITION. CALL LIGHT WITHIN REACH. SIDE RAILS UP X2.
[2020-05-08 20:59] VITALS: BP 154/94
--- NOTE | 2020-05-08 22:33 | NUR ---
SPOKE TO DR PEREZ AND GAVE PATIET UPDATES. PATIENT STABLE AT THIS TIME.
--- NOTE | 2020-05-09 00:30 | NUR ---
SLEEPING AT THIS TIME. EU BREATHING NOTED ON ROOMAIR. NSR ON TELE. TUBE FEEDING INFUSING WELL, NO N/V. TOLERATING WELL. IVF INFUSING. SAFETY PREFACUTIONS IN PLACE.
[2020-05-09 04:57] VITALS: BP 110/68
--- NOTE | 2020-05-09 06:29 | NUR ---
NO RESIDUAL, TUBE FEEDING INFUSING AT 30ML/HR. TOLERATING WELL, NO N/V. IVF INFUSIG TO LUE. WILL ENDORSE CARE TO ONCOMING SHIFT NURSE.
[2020-05-09 07:10] LABS: BASOPHIL % 0.4 % (0-2); PLATELET COUNT 327 x10^3mcL (130-400)
[2020-05-09 08:02] LABS: ALKALINE PHOSPHATASE 144 U/L (46-116); ALT/SGPT 60 U/L (14-59); AST/SGOT 40 U/L (15-37); BILIRUBIN TOTAL 0.1 mg/dL (0.20-1.00); CALCIUM 8.4 mg/dL (8.5-10.1); CARBON DIOXIDE 27.7 mmol/L (21-32); CHLORIDE SERUM 106 mmol/L (98-107); CREATININE SERUM 0.8 mg/dL (0.6-1.0); GFR1 > 60 mL/min; GLUCOSE SERUM 123 mg/dL (74-106); MAGNESIUM 2.4 mg/dL (1.8-2.4); POTASSIUM SERUM 4.1 mmol/L (3.5-5.1); SODIUM SERUM 143 mmol/L (136-145)
[2020-05-09 08:03] LABS: ALBUMIN 2.1 g/dL (3.4-5.0)
[2020-05-09 08:28] LABS: RED CELL DISTRIBUTION WIDTH 14.6 % (11.5-14.5)
[2020-05-09 09:17] VITALS: BP 128/77
[2020-05-09] MEDS ORDERED: CIPRO500 MG PO (11:39)
[2020-05-09 13:18] VITALS: BP 112/68
[2020-05-09 16:07] VITALS: BP 112/68
--- NOTE | 2020-05-09 16:14 | NUR ---
Initial Nutrition Assessment: NEGIN BLANTON THI 60F HR Nursing trigger: tube feeding Dx: sepsis with UTI PMHx: Parkinson disease, Chronic constipation, depression, muscle spasm PSHx: No current surgery noted per H and P (05/08) Labs: (05/09) H/H 9.9/30L, BG 123H, Ca 8.4L, total bilirubin 0.1L, AST 40H, ALT 60H, Al kph 144H, (05/07) Ferritin 659.7H, CRP 25.9H, Albumin 2.1L Meds: Rocephin, Sodium, Heparin sodium, Zithromax Current Nutrition support: Nepro at 45ml/hr, fwf 200ml Q8H via GT TF infusion: (05/09) 490ml I/Os: (05/09) 2090ml, (05/08) 2850ml GRV: none per RN Ht: 162.56cm/64in Wt: 49.016kg/107.8lbs BMI: 18.5 Bed scale: not accessible IBW: 54.55kg/120lbs %IBW: 89.9% UBW: unknown Age: 60 Food Allergies: unknown Edema: no edema noted Last BM: none noted Skin: skin intact Ab: 15 Per H and P (05/08), 60-year-old female dynamic speaking with Parkinson's disease is presenting with fever. Patient is poor historian. Review of chart and discussion with nursing staff provide history that provided information that patient symptoms started approximately 3 days ago with intermittent fever. Associate with generalized weakness and mild cough. At home pulse oximetry was obtained and read 77%. Also positive family members with COVID-19. This patient was tested positive for COVID-19 but recovered. Otherwise patient received tube feeding. She is on maximal assistance at home. No other diarrhea or abdominal pain reported. Pt was admitted with dx: Possible UTI, COVID r/o, SARAH prerenal, Parkinson's disease, Dysphagia on tube feeding RD Note (05/09/2020) Pt was in isolation d/t COVID r/o. Per pt's RN, pt was tolerating tube feed well with no residuals today, and RN will likely increase rate to 40ml/hr today. Per RN, pt's last BM was last night. Current TF regimen will provide 1944kcal and 87.48g protein at goal rate meeting 113% of estimated kcal needs and 100% protein needs. Problem with: N/V/D/C: none per RN Problems with: Chewing: Swallowing: n/a Current appetite: n/a Recent wt change: unknown %wt change: unknown Height: unknown Vitamin/Supplement use: unknown Special diet at home: unknown Physical activity: unknown Nutrition education given (specify specific nutrition education and handout given): not given at this time d/t pt in isolation Food-drug interactions? Education given? n/a Estimated Nutritional Needs Based on current body weight (49kg) Energy: 2112-2053 kcal/day (30-35 kcal/kg for underweight for age and sepsis) Protein: 73-98 g/day (1.5-2 g/kg for underweight for age and sepsis) Fluid: 1690-0266 mL/day (1 mL/kcal) Nutrition Diagnosis: 1. Underweight for age r/t imbalance intake and output a/e/b pt BMI < 23 and age > 65. 2. Increased energy and protein needs r/t critical illness a/e/b pt was admitted with sepsis. Intervention 1. Recommend Jevity at 55ml/hr. At goal rate, regimen will provide a volume of 1320ml, 1584kcal, 73g protein and 1065.24 ml free water meeting 100% of estimated kcal and protein needs. 2. Recommend fwf 70ml Q4H for additional 420ml and total 1485ml free water. Paged Dr. Wylie. Waiting for response. Monitor/Evaluate Goal: Pt meeting at least 75% of estimated needs via nutrition support (current regimen exceeding needs) Monitor: Nutrition support tolerance, Labs, GI function F/U in 2-3 days as high risk 05/11-
--- NOTE | 2020-05-09 20:06 | NUR ---
Pt condition remained stable throughout shift. Pt has discharge order waiting on transportation. Care endorsed to oncoming shift RN.
--- NOTE | 2020-05-09 20:25 | NUR ---
PT HAS BEEN PICKED UP BY TRANSPORTATION AND DISCHARGED TO HOME. SON HAS BEEN INFORMED. PT IS BREATHING EVEN AND UL ON RA UPON DISCHARGE. REMAINS IN STABLE CONDITION UPON DISCHARGE.
== END 2020-05-09 20:25 | disposition home or self-care (01) | DRG 720 ==
LOC: ED 16:58 → DU 22:15
PROVIDERS: Emergency Medicine; ADMIT Hospitalist; ATTEND Hospitalist
DX: A41.9 Sepsis, unspecified organism (principal); N17.9 Acute kidney failure, unspecified; G20 Parkinson's disease; R13.10 Dysphagia, unspecified; Z20.828 Contact with and (suspected) exposure to other viral communicable diseases; I10 Essential (primary) hypertension; N39.0 Urinary tract infection, site not specified; Z79.899 Other long term (current) drug therapy
CPT/HCPCS: 36600; 83880; 85378; 87804; G0378; J0456; J0696; J1644; J7030; J7060; U0003